=== PATIENT | male | born 1990 | race Caucasian/White ===

== ENCOUNTER 2020-03-07 01:15 | Emergency (ER) | payer BC ==
[~2020-03-07] VITALS: Ht 175.3 cm; Wt 117.9 kg
[2020-03-07 01:18] VITALS: BP 133/87
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
[2020-03-07 01:45] VITALS: BP 133/87
--- NOTE | 2020-03-07 01:45 | NUR ---
PATIENT BIB [facility] . PATIENT EXAMINED BY DR. ESPARZA. PATIENT MEDICALLY CLEARED AND RELEASED IN CUSTODY IN STABLE CONDITION. ORIGINAL PRE-BOOK FORM GIVEN TO OFFICER HEYDI.
== END 2020-03-07 01:43 ==
LOC: MED 01:15
DX: M54.2 Cervicalgia (principal); R03.0 Elevated blood-pressure reading, without diagnosis of hypertension; Z02.89 Encounter for other administrative examinations; X58.XXXA Exposure to other specified factors, initial encounter; Y93.89 Activity, other specified; Y92.89 Other specified places as the place of occurrence of the external cause; Y99.8 Other external cause status
CPT/HCPCS: 99283